=== PATIENT | male | born 1980 | race Caucasian/White ===

== ENCOUNTER 2017-03-30 11:19 | Emergency (ER) | payer OTHER ==
[~2017-03-30] VITALS: Ht 180.3 cm; Wt 81.7 kg
[~2017-03-30 11:19] MED LIST: ATIVAN1 MG; BACTRIM DS TAB1 EACH PO; DESYREL150 MG PO; FLEXERIL PO; IBUPROFEN 600600 M1 PO; IBUPROFEN 800800 MG PO; MECLIZINE 25 MG25 M1 PO; NICOTINE PATCH1 EAC1 TRANSDERM; NICOTINE TRANSD21 M1 TD; NOHOMEMEDICATIONS; NORCO 5-325 TA1 EACH PO; PAROXETINE HCL10 MG PO; PAXIL10 MG PO; PHENERGAN 25 MG25 MG PO; PROZAC; TRINATE TABLET1 TAB PO; ULTRAM 50MG TAB50 MG PO; VALIUM5 MG PO; VITAMIN B-1100 M1 PO; XANAX; XANAX XR1 MG PO; ZOLOFT100 MG OR
[2017-03-30] MEDS ORDERED: ZOLOFT100 MG PO (11:31)
[2017-03-30] MEDS ORDERED: SEROQUEL300 MG PO (11:31)
[2017-03-30] MEDS ORDERED: CLONAZEPAM 0.50.5 M1 PO (11:31)
[2017-03-30 11:44] LABS: ABSOLUTE NEUTROPHILS 3.3 thou/uL (1.4-8.2); BASOPHILS 1.1 % (0.0-2.0); EOSINOPHILS 4.1 % (0.0-3.0); HEMATOCRIT 36.7 % (42.0-52.0); HEMOGLOBIN 12.6 gm/dL (14.0-18.0); LYMPHOCYTES 26.6 % (24.0-44.0); MCH 32.1 pg (26.0-34.0); MCHC 34.4 g/dL (28.0-37.0); MCV 93.2 fL (80.0-100.0); MONOCYTES 7.7 % (1.0-8.0); PLATELET COUNT 239 thou/uL (150-400); POLYS 60.5 % (36.0-66.0); RBC 3.93 mil/uL (4.50-6.00); RDW 13.7 % (10.5-14.5); WBC 5.5 thou/uL (4.0-11.0)
[2017-03-30 11:45] LABS: MANUAL DIFF NO
[2017-03-30 11:52] LABS: ANION GAP 9 mmol/L (7-16); BUN 20 mg/dL (7-18); CALCIUM 8.9 mg/dL (8.5-10.1); CHLORIDE 105 mmol/L (98-107); CO2 26 mmol/L (21-32); CREATININE 1.1 mg/dL (0.7-1.3); GLUCOSE 97 mg/dL (74-106); POTASSIUM 4.2 mmol/L (3.5-5.1); SODIUM 140 mmol/L (136-145)
[2017-03-30 11:56] LABS: ALBUMIN 4.6 g/dL (3.4-5.0); ALKALINE PHOSPHATASE 54 U/L (46-116); DIRECT BILIRUBIN < 0.1 mg/dL (<0.1-0.3); SGOT 19 U/L (15-37); SGPT 20 U/L (30-65); TOTAL BILIRUBIN 0.3 mg/dL (<0.1-1.0); TOTAL PROTEIN 7.1 g/dL (6.4-8.2)
[2017-03-30 11:57] LABS: URINE BILIRUBIN NEGATIVE (Negative); URINE BLOOD NEGATIVE (Negative); URINE COLOR YELLOW; URINE GLUCOSE-RANDOM* NEGATIVE (Negative); URINE KETONES NEGATIVE (Negative); URINE NITRITE NEGATIVE (Negative); URINE PROTEIN (DIPSTICK) NEGATIVE (Negative); URINE UROBILINOGEN 0.2 E.U./dl (0.2-1.0)
[2017-03-30 12:05] LABS: AMP/METHAMP Negative (Negative); BARBITURATES Negative (Negative); BENZODIAZEPINES Negative (Negative); COCAINE Negative (Negative); METHADONE Negative (Negative); OPIATES Negative (Negative); PCP Negative (Negative); THC POSITIVE (Negative)
[2017-03-30] MEDS ORDERED: IBUPROFEN 600600 M1 PO (13:22)
[2017-03-30] MEDS ORDERED: CARISOPRODOL 3350 MG PO (13:22)
== END 2017-03-30 13:54 | disposition home or self-care (01) ==
LOC: ER 11:19
PROVIDERS: Nurse Practitioner
DX: K59.00 Constipation, unspecified (principal); M54.5 Low back pain; Z88.8 Allergy status to other drugs, medicaments and biological substances; F17.210 Nicotine dependence, cigarettes, uncomplicated; F10.99 Alcohol use, unspecified with unspecified alcohol-induced disorder; F15.90 Other stimulant use, unspecified, uncomplicated; F41.9 Anxiety disorder, unspecified; F32.9 Major depressive disorder, single episode, unspecified

== ENCOUNTER 2020-06-22 11:58 | Emergency (ER) | payer OTHER ==
[~2020-06-22] VITALS: Ht 182.9 cm; Wt 81.7 kg
[~2020-06-22 11:58] MED LIST changes: +CARISOPRODOL 3350 MG PO; +CLONAZEPAM 0.50.5 M1 PO; +SEROQUEL300 MG PO; +ZOLOFT100 MG PO
[2020-06-22] MEDS ORDERED: CLONAZEPAM 1 MG1 M1 PO (12:14)
[2020-06-22] MEDS ORDERED: DESYREL150 MG PO (12:14)
[2020-06-22] MEDS ORDERED: ESCITALOPRAM OX20 MG PO (12:14)
[2020-06-22] MEDS ORDERED: QUETIAPINE FUM200 MG PO (12:14)
[2020-06-22] MEDS ORDERED: NEURONTIN100 MG PO (12:15)
[2020-06-22 12:17] LABS: HEMATOCRIT 40.9 % (42.0-52.0); HEMOGLOBIN 13.7 gm/dL (14.0-18.0); MCH 33.4 pg (26.0-34.0); MCHC 33.5 g/dL (28.0-37.0); MCV 99.6 fL (80.0-100.0); RBC 4.11 mil/uL (4.50-6.00); RDW 14.2 % (10.5-14.5); WBC 8.2 thou/uL (4.0-11.0)
[2020-06-22 12:28] LABS: ANION GAP 13 mmol/L (7-16); BUN 23 mg/dL (7-18); CHLORIDE 99 mmol/L (98-107); CO2 24 mmol/L (21-32); CREATININE 1.1 mg/dL (0.7-1.3); GLUCOSE 88 mg/dL (74-106); SODIUM 136 mmol/L (136-145)
[2020-06-22 12:35] LABS: ALBUMIN 4.2 g/dL (3.4-5.0); DIRECT BILIRUBIN 0.1 mg/dL (<0.1-0.2); SALICYLATE 5.6 mg/dL (2.8-20.0); SGOT 82 U/L (15-37); SGPT 60 U/L (30-65); TOTAL BILIRUBIN 0.4 mg/dL (0.2-1.0); TOTAL PROTEIN 7.6 g/dL (6.4-8.2)
[2020-06-22 13:57] LABS: URINE BILIRUBIN NEGATIVE (Negative); URINE BLOOD NEGATIVE (Negative); URINE CLARITY CLEAR; URINE COLOR YELLOW; URINE GLUCOSE-RANDOM* NEGATIVE (Negative); URINE KETONES TRACE (Negative); URINE LEUKOCYTES-REFLEX NEGATIVE (Negative); URINE NITRITE-REFLEX NEGATIVE (Negative); URINE PROTEIN (DIPSTICK) NEGATIVE (Negative); URINE SPECIFIC GRAVITY 1.025 (1.005-1.035); URINE UROBILINOGEN 0.2 E.U./dl (0.2-1.0)
[2020-06-22 14:11] LABS: AMP/METHAMP Negative (Negative); BARBITURATES Negative (Negative); BENZODIAZEPINES POSITIVE (Negative); COCAINE Negative (Negative); METHADONE Negative (Negative); OPIATES Negative (Negative); PCP Negative (Negative)
--- NOTE | 2020-06-23 08:04 | EKG ---
[facility] [place] [address] ELECTROCARDIOGRAM REPORT Name: JESSICA WHITMAN Room #: REG [facility]#: [id number] Admission: 06/22/20 Attend Phys: Discharge: Date of : 84 Report #: [id number] THIS REPORT FOR: cc: Jacqueline Marrero Christine L. DO Lundgren, Craig H. MD [facility] THIS REPORT FOR: //name// [facility] ED Test Date: 2020-06-22 Test Time: 12:17:37 Pat Name: JESSICA WHITMAN Department: Room: Gender: [employer]: [facility] : 1980 Requested By: Manas Mathews Order Number: [id number] MD: Kevin Julien Measurements Intervals [place] Rate: 91 P: 67 [place]: 170 QRS: 42 QRSD: 89 T: 29 QT: 355 QTc: 437 Interpretive Statements Sinus rhythm RSR' in V1 or V2, right VCD Compared to ECG 08/12/2011 18:57:22 No significant change was found Electronically Signed On 06-23-2020 8:04:30 CDT by Kevin Julien [email or web address] <ELECTRONICALLY SIGNED> By: Kevin Julien MD, [facility] 06/23/20 0804 1217 1217 Kevin Julien MD, [facility] /EPI
[2020-06-23 21:40] VITALS: BP 125/75
--- NOTE | 2020-06-24 07:45 | EKG ---
[facility] [place] [address] ELECTROCARDIOGRAM REPORT Name: JESSICA WHITMAN Room #: DEP [facility].#: [id number] Admission: 06/22/20 Attend Phys: Discharge: 06/23/20 Date of : 84 Report #: [id number] THIS REPORT FOR: cc: Jacqueline Marrero Christine L. DO Lundgren,Kevin Amanda MD [facility] ~ THIS REPORT FOR: //name// [facility] ED Test Date: 2020-06-23 Test Time: 17:10:54 Pat Name: JESSICA WHITMAN Department: Room: Gender: [employer]: [facility] : 1980 Requested By: Manas Mathews Order Number: [id number] MD: Kevin Julien Measurements Intervals [place] Rate: 68 P: 33 [place]: 157 QRS: 23 QRSD: 90 T: 8 QT: 382 QTc: 407 Interpretive Statements Sinus rhythm RSR' in V1 or V2, right VCD Baseline wander in lead(s) V1 Compared to ECG 06/22/2020 12:17:37 No significant change was found Electronically Signed On 06-24-2020 7:44:53 CDT by Kevin Julien [email or web address] <ELECTRONICALLY SIGNED> By: Kevin Julien MD, [facility] 06/24/20 0744 1710 1710 Kevin Julien MD, [facility] /EPI
[2020-06-24 22:06] LABS: TRICYCLIC (TCA) CONFIRMATION Positive ng/mL (Cutoff=100)
== END 2020-06-23 21:50 | disposition short-term general hospital (02) ==
LOC: ER 11:58
PROVIDERS: Emergency Medicine
DX: S61.512A Laceration without foreign body of left wrist, initial encounter (principal); T43.592A Poisoning by other antipsychotics and neuroleptics, intentional self-harm, initial encounter; F17.210 Nicotine dependence, cigarettes, uncomplicated; Z20.828 Contact with and (suspected) exposure to other viral communicable diseases; Z79.899 Other long term (current) drug therapy; Z88.8 Allergy status to other drugs, medicaments and biological substances; X78.1XXA Intentional self-harm by knife, initial encounter; Y92.89 Other specified places as the place of occurrence of the external cause; Y93.89 Activity, other specified; Y99.8 Other external cause status

== ENCOUNTER 2022-01-25 16:48 | Emergency (ER) | payer BC ==
[~2022-01-25] VITALS: Ht 182.9 cm; Wt 79.4 kg
[~2022-01-25 16:48] MED LIST changes: +CLONAZEPAM 1 MG1 M1 PO; +ESCITALOPRAM OX20 MG PO; +NEURONTIN100 MG PO; +QUETIAPINE FUM200 MG PO
[2022-01-25 16:54] VITALS: BP 121/76
[2022-01-25 17:20] LABS: HEMATOCRIT 35.6 % (42.0-52.0); HEMOGLOBIN 11.9 gm/dL (14.0-18.0); MCH 31.9 pg (26.0-34.0); MCHC 33.4 g/dL (28.0-37.0); MCV 95.6 fL (80.0-100.0); PLATELET COUNT 300 thou/uL (150-400); RBC 3.72 mil/uL (4.50-6.00); WBC 7.1 thou/uL (4.0-11.0)
[2022-01-25 17:24] LABS: CALCIUM 9.3 mg/dL (8.5-10.1); CREATININE 1.1 mg/dL (0.7-1.3); POTASSIUM 4.4 mmol/L (3.5-5.1)
[2022-01-25] MEDS ORDERED: NAPROSYN500 MG PO (18:11)
[2022-01-25] MEDS ORDERED: FLEXERIL PO (18:11)
[2022-01-25 18:14] LABS: ABSOLUTE NEUTROPHILS 4.2 thou/uL (1.4-8.2)
== END 2022-01-25 18:27 | disposition home or self-care (01) ==
LOC: ER 16:48
PROVIDERS: Emergency Medicine
DX: S00.93XA Contusion of unspecified part of head, initial encounter (principal); S30.1XXA Contusion of abdominal wall, initial encounter; F41.9 Anxiety disorder, unspecified; F32.9 Major depressive disorder, single episode, unspecified; F17.210 Nicotine dependence, cigarettes, uncomplicated; Z79.899 Other long term (current) drug therapy; Z88.5 Allergy status to narcotic agent; W19.XXXA Unspecified fall, initial encounter; Y93.89 Activity, other specified; Y92.89 Other specified places as the place of occurrence of the external cause; Y99.8 Other external cause status